=== PATIENT | female | born 1965 | race American Indian/Alaskan Native ===

== ENCOUNTER 2019-11-16 14:42 | Observation (INO) | payer OTHER ==
--- NOTE | 2019-11-16 15:26 | Emergency Department Report ---
Blank Doc - Documentation Documentation: 53-year-old female that presents with abdominal pain with n/v. This initial assessment/diagnostic orders/clinical plan/treatment(s) is/are subject to change based on patient's health status, clinical progression and re- assessment by fellow clinical providers in the ED. Further treatment and workup at subsequent clinical providers discretion. Patient/guardians urged not to elope from the ED as their condition may be serious if not clinically assessed and managed. Initial orders include: 1- Patient sent to [facility] for further evaluation and treatment 2- labs 3- UA
[2019-11-16 16:18] LABS: Hematocrit 39.1 % (30.3-42.9); Hemoglobin 13.2 gm/dl (10.1-14.3); Mean Corpuscular HGB Conc 34 % (30-34); Mean Corpuscular Volume 91 fl (79-97); Platelet Count 267 K/mm3 (140-440); Red Blood Count 4.33 M/mm3 (3.65-5.03); Red Cell Distribution Width 14.2 % (13.2-15.2)
[2019-11-16] MEDS ORDERED: ONDANSETRON 4 MG/2 ML INJ IV ONE (16:24)
[2019-11-16] MEDS ORDERED: PIPERACIL/TAZOBACTA 4.5/NS 100 4.5 GM/100 ML VIAL IV ONE (16:24)
[2019-11-16] MEDS ORDERED: SODIUM CHLORIDE 0.9% 1000 ML 1,000 ML IV ONE (16:24)
[2019-11-16] MEDS ORDERED: MORPHINE 4 MG/1 ML INJ IV ONE (16:24)
[2019-11-16 16:44] LABS: Alanine Aminotransferase 17 units/L (7-56); Albumin 4.5 g/dL (3.9-5); BUN/Creatinine Ratio 30; Blood Urea Nitrogen 12 mg/dL (7-17); Calcium 9.5 mg/dL (8.4-10.2); Hemolysis Index 4
[2019-11-16 17:04] LABS: Anisocytosis 1+; Band Neutrophils # (Manual) 0.3 K/mm3; Basophils % (Manual) 0 % (0.0-1.8); Eosinophils % (Manual) 0 % (0.0-4.3); Total Cells Counted 100; Toxic Granulation 1+
[2019-11-16 17:05] LABS: Platelet Estimate Consistent w Auto
--- NOTE | 2019-11-16 17:20 | Consultation ---
History of Present Illness Consult date: 11/16/19 Reason for consult: other (RLQ Abd pain) - History of present illness History of present illness: 53 year old female with 24-48 hour hx of progressive right lower quadrant pain, WBC 25 K, CT abd pelvis suggests acute appendicitis, only hx is hysterectomy in remote past and latex allergy. Past History Past Surgical History: No surgical history, Other (hysterectomy? in past/remote) Social history: no significant social history Family history: no significant family history Medications and Allergies Allergies Allergy/AdvReac Type Severity Reaction Status Date / Time latex Allergy Anaphylaxis Verified 11/16/19 15:30 Active Meds: Active Medications Sodium Chloride (Nacl 0.9% 1000 Ml) 1,000 mls @ 999 mls/hr IV BOLUS ONE Stop: 11/16/19 17:24 Exam Vital Signs Temp Pulse Resp BP Pulse Ox 98.9 F 106 H 20 131/70 96 11/16/19 15:28 11/16/19 15:28 11/16/19 15:28 11/16/19 15:28 11/16/19 15:28 - General physical appearance Positive: moderate distress - Eyes Positive: PERRL, normal occular movement - ENT Positive: normal pinna, normal nares, normal mucosa, no hearing loss, no congestion - Neck Positive: no masses, no bruits, trachea midline, no venous distension - Respiratory Positive: normal expansion, normal respiratory effort, clear to auscultation - Cardiovascular Rhythm: regular - Extremities Extremities: no ischemia, pulses symmetrical, No edema - Breasts Breasts: deferred - Abdomen Abdomen: Present: tender, other (tender to deep palpation right lower quadrant, no rebound or guarding) Results - Labs 11/16/19 15:52 11/16/19 15:52 Abnormal lab results 11/16/19 11/16/19 Range/Units 15:52 15:52 WBC 25.7 H (4.5-11.0) K/mm3 Seg Neuts % (Manual) 96.0 H (40.0-70.0) % Lymphocytes % (Manual) 1.0 L (13.4-35.0) % Seg Neutrophils # Man 24.7 H (1.8-7.7) K/mm3 Lymphocytes # (Manual) 0.3 L (1.2-5.4) K/mm3 Chloride 95.7 L (98-107) mmol/L Creatinine 0.4 L (0.6-1.2) mg/dL Glucose 107 H (65-100) mg/dL Total Bilirubin 1.40 H (0.1-1.2) mg/dL Diabetes panel 11/16/19 Range/Units 15:52 Sodium 137 (137-145) mmol/L Potassium 4.3 (3.6-5.0) mmol/L Chloride 95.7 L (98-107) mmol/L Carbon Dioxide 25 (22-30) mmol/L BUN 12 (7-17) mg/dL Creatinine 0.4 L (0.6-1.2) mg/dL Glucose 107 H (65-100) mg/dL Calcium 9.5 (8.4-10.2) mg/dL AST 18 (5-40) units/L ALT 17 (7-56) units/L Alkaline Phosphatase 80 (35-129) units/L Total Protein 7.7 (6.3-8.2) g/dL Albumin 4.5 (3.9-5) g/dL Calcium panel 11/16/19 Range/Units 15:52 Calcium 9.5 (8.4-10.2) mg/dL Albumin 4.5 (3.9-5) g/dL Pituitary panel 11/16/19 Range/Units 15:52 Sodium 137 (137-145) mmol/L Potassium 4.3 (3.6-5.0) mmol/L Chloride 95.7 L (98-107) mmol/L Carbon Dioxide 25 (22-30) mmol/L BUN 12 (7-17) mg/dL Creatinine 0.4 L (0.6-1.2) mg/dL Glucose 107 H (65-100) mg/dL Calcium 9.5 (8.4-10.2) mg/dL Adrenal panel 11/16/19 Range/Units 15:52 Sodium 137 (137-145) mmol/L Potassium 4.3 (3.6-5.0) mmol/L Chloride 95.7 L (98-107) mmol/L Carbon Dioxide 25 (22-30) mmol/L BUN 12 (7-17) mg/dL Creatinine 0.4 L (0.6-1.2) mg/dL Glucose 107 H (65-100) mg/dL Calcium 9.5 (8.4-10.2) mg/dL Total Bilirubin 1.40 H (0.1-1.2) mg/dL AST 18 (5-40) units/L ALT 17 (7-56) units/L Alkaline Phosphatase 80 (35-129) units/L Total Protein 7.7 (6.3-8.2) g/dL Albumin 4.5 (3.9-5) g/dL - Imaging CT scan - abdomen: report reviewed (acute appendicitis) Assessment and Plan Acute appendicitis suggested on CT abd pelvis, no perforation or abcess. Admit,npo, iv fluids, pain control OR for lap appendectomy
--- NOTE | 2019-11-16 18:09 | Cat Scan Report ---
CT ABDOMEN AND PELVIS WITH IV CONTRAST INDICATION: RLQ abd pain, N/V, elevated WBC. COMPARISON: None available. TECHNIQUE: All CT scans at this facility use dose modulation, automated exposure control, iterative reconstructi on or weight based dosing, when appropriate, to reduce radiation dose to as low as reasonably achieva ble. FINDINGS: Lung Bases: No significant abnormality. Skeletal System: No acute abnormality. ABDOMEN: Liver: Steatosis. Gallbladder: No significant abnormality. Bile Ducts: No significant abnormality. Pancreas: No significant abnormality. Spleen: No significant abnormality. Adrenals: No significant abnormality. Right Kidney: No significant abnormality. Left Kidney: No significant abnormality. Upper GI tract: No significant abnormality. Lymph Nodes: No significant adenopathy. Aorta: No significant abnormality. Additional Findings: No significant abnormality. PELVIS: Colon: No acute abnormality. Diverticulosis is noted. Urinary Bladder and Distal Ureters: No significant abnormality. Appendix: There is moderate periappendiceal inflammation. There is thickening of the appendix near th e base. Questionable small appendicolith near the base. Lymph Nodes: No significant adenopathy. Additional Findings: There is mild secondary inflammation of the distal small bowel in the right lowe r quadrant. There is trace free fluid in the pelvis. IMPRESSION: 1. There is periappendiceal inflammation and trace free fluid in the pelvis. There is suggestion of mild wall thickening of the appendiceal base. However, majority the appendix is not thick-walled or f luid-filled. These findings are concerning for acute appendicitis, possibly due to an obstructing les ion at the base/cecum. No abscess is identified. There is mild secondary inflammation of distal small bowel in the right lower quadrant. 2. Incidental findings, as above. Signer Name: Maynor Limon MD Signed: 11/16/2019 6:05 PM Workstation Name: [id number]
--- NOTE | 2019-11-16 18:11 | Emergency Department Report ---
ED Abdominal Pain HPI - General Chief Complaint: Abdominal Pain Stated Complaint: RIGHT SIDE ABD PAIN Time Seen by Provider: 11/16/19 15:25 Source: patient Mode of arrival: Ambulatory Limitations: No Limitations - History of Present Illness Initial Comments: Patient is a 53-year-old female presents emergency room with complaints of periumbilical abdominal pain that began yesterday morning. She states that last night the pain moved to her right lower quadrant. She has associated nausea, no appetite, generalized weakness. She states that the last time she ate was this morning and she had a couple of kiwi slices but then began to feel nauseous like she wanted to vomit. She states that she had a small bowel movement this morning. She denies any vomiting, diarrhea, fever, hematochezia, hematemesis, melena, urinary symptoms. She has a past abdominal Surgical history of C- section x3, fibroid removal, partial hysterectomy. She has a past medical history of hyperthyroidism and takes methimazole. She denies any allergies to medications. Severity scale (0 -10): 8 - Related Data Allergies Allergy/AdvReac Type Severity Reaction Status Date / Time latex Allergy Anaphylaxis Verified 11/16/19 15:30 ED Review of Systems ROS: Stated complaint: RIGHT SIDE ABD PAIN Other details as noted in HPI Comment: All other systems reviewed and negative ED Past Medical Hx - Past Medical History Previous Medical History?: Yes Additional medical history: [facility] Physical Exam - General Limitations: No Limitations General appearance: alert, in no apparent distress - Head Head exam: Present: atraumatic, normocephalic - Eye Eye exam: Present: normal appearance - ENT ENT exam: Present: mucous membranes moist - Respiratory Respiratory exam: Present: normal lung sounds bilaterally. Absent: respiratory distress, wheezes, rales, rhonchi, stridor, chest wall tenderness, accessory muscle use, decreased breath sounds, prolonged expiratory - Cardiovascular Cardiovascular Exam: Present: normal rhythm, tachycardia (mildly), normal heart sounds. Absent: systolic murmur, diastolic murmur, rubs, gallop - GI/Abdominal GI/Abdominal exam: Present: soft, tenderness (RLQ), rebound, normal bowel soun ds. Absent: distended, guarding, rigid - Neurological Exam Neurological exam: Present: alert, oriented X3 - Psychiatric Psychiatric exam: Present: normal affect, normal mood - Skin Skin exam: Present: warm, dry, intact ED Course Vital Signs 11/16/19 11/16/19 15:28 17:35 Temperature 98.9 F Pulse Rate 106 H Respiratory 20 16 Rate Blood Pressure 131/70 O2 Sat by Pulse 96 Oximetry - Consultations Consultation #1: 11/16/19 16:[address] Gracia, general surgery regarding patient history, presentation, results, advised to make patient n.p.o., give IV fluids, give patient Zosyn, will take to the OR, admit to hospitalist service 11/16/19 18:[address] Herring, hospitalist regarding patient history, presentation, results who will accept and resume care of patient, will admit to hospital service ED Medical Decision Making - Lab Data Result diagrams: 11/16/19 15:52 11/16/19 15:52 Lab Results 11/16/19 11/16/19 Range/Units 15:52 15:52 WBC 25.7 H (4.5-11.0) K/mm3 RBC 4.33 (3.65-5.03) M/mm3 Hgb 13.2 (10.1-14.3) gm/dl Hct 39.1 (30.3-42.9) % MCV 91 (79-97) fl MCH 30 (28-32) pg MCHC 34 (30-34) % RDW 14.2 (13.2-15.2) % Plt Count 267 (140-440) K/mm3 Add Manual Diff Complete Total Counted 100 Seg Neuts % (Manual) 96.0 H (40.0-70.0) % Band Neutrophils % 1.0 % Lymphocytes % (Manual) 1.0 L (13.4-35.0) % Reactive Lymphs % (Man) 0 % Monocytes % (Manual) 2.0 (0.0-7.3) % Eosinophils % (Manual) 0 (0.0-4.3) % Basophils % (Manual) 0 (0.0-1.8) % Metamyelocytes % 0 % Myelocytes % 0 % Promyelocytes % 0 % Blast Cells % 0 % Nucleated RBC % Not Reportable Seg Neutrophils # Man 24.7 H (1.8-7.7) K/mm3 Band Neutrophils # 0.3 K/mm3 Lymphocytes # (Manual) 0.3 L (1.2-5.4) K/mm3 Abs React Lymphs (Man) 0.0 K/mm3 Monocytes # (Manual) 0.5 (0.0-0.8) K/mm3 Eosinophils # (Manual) 0.0 (0.0-0.4) K/mm3 Basophils # (Manual) 0.0 (0.0-0.1) K/mm3 Metamyelocytes # 0.0 K/mm3 Myelocytes # 0.0 K/mm3 Promyelocytes # 0.0 K/mm3 Blast Cells # 0.0 K/mm3 WBC Morphology Not Reportable Hypersegmented Neuts Not Reportable Hyposegmented Neuts Not Reportable Hypogranular Neuts Not Reportable Smudge Cells Not Reportable Toxic Granulation 1+ Toxic Vacuolation Not Reportable Dohle Bodies Not Reportable Pelger-Huet Anomaly Not Reportable Justino Rods Not Reportable Platelet Estimate Consistent w auto Clumped Platelets Not Reportable Plt Clumps, EDTA Not Reportable Large Platelets Not Reportable Giant Platelets Not Reportable Platelet Satelliting Not Reportable Plt Morphology Comment Not Reportable RBC Morphology Not Reportable Dimorphic RBCs Not Reportable Polychromasia Not Reportable Hypochromasia Not Reportable Poikilocytosis Not Reportable Anisocytosis 1+ Microcytosis Not Reportable Macrocytosis Not Reportable Spherocytes Not Reportable Pappenheimer Bodies Not Reportable Sickle Cells Not Reportable Target Cells Not Reportable Tear Drop Cells Not Reportable Ovalocytes Not Reportable Helmet Cells Not Reportable [place] Bodies Not Reportable Myton Rings Not Reportable Kerkhoven Cells Not Reportable Bite Cells Not Reportable Crenated Cell Not Reportable Elliptocytes Not Reportable Acanthocytes (Spur) Not Reportable Rouleaux Not Reportable Hemoglobin C Crystals Not Reportable Schistocytes Not Reportable Malaria parasites Not Reportable Rodney Bodies Not Reportable Hem Pathologist Commnt No Sodium 137 (137-145) mmol/L Potassium 4.3 (3.6-5.0) mmol/L Chloride 95.7 L (98-107) mmol/L Carbon Dioxide 25 (22-30) mmol/L Anion Gap 21 mmol/L BUN 12 (7-17) mg/dL Creatinine 0.4 L (0.6-1.2) mg/dL Estimated GFR > 60 ml/min BUN/Creatinine Ratio 30 % Glucose 107 H (65-100) mg/dL Calcium 9.5 (8.4-10.2) mg/dL Total Bilirubin 1.40 H (0.1-1.2) mg/dL AST 18 (5-40) units/L ALT 17 (7-56) units/L Alkaline Phosphatase 80 (35-129) units/L Total Protein 7.7 (6.3-8.2) g/dL Albumin 4.5 (3.9-5) g/dL Albumin/Globulin Ratio 1.4 % Lipase 16 (13-60) units/L - Radiology Data Radiology results: report reviewed CT ABDOMEN AND PELVIS WITH IV CONTRAST INDICATION: RLQ abd pain, N/V, elevated WBC. COMPARISON: None available. TECHNIQUE: All CT scans at this facility use dose modulation, automated exposure control, iterative reconstruction or weight based dosing, when appropriate, to reduce radiation dose to as low as reasonably achievable. FINDINGS: Lung Bases: No significant abnormality. Skeletal System: No acute abnormality. ABDOMEN: Liver: Steatosis. Gallbladder: No significant abnormality. Bile Ducts: No significant abnormality. Pancreas: No significant abnormality. Spleen: No significant abnormality. Adrenals: No significant abnormality. Right Kidney: No significant abnormality. Left Kidney: No significant abnormality. Upper GI tract: No significant abnormality. Lymph Nodes: No significant adenopathy. Aorta: No significant abnormality. Additional Findings: No significant abnormality. PELVIS: Colon: No acute abnormality. Diverticulosis is noted. Urinary Bladder and Distal Ureters: No significant abnormality. Appendix: There is moderate periappendiceal inflammation. There is thickening of the appendix near the base. Questionable small appendicolith near the base. Lymph Nodes: No significant adenopathy. Additional Findings: There is mild secondary inflammation of the distal small bowel in the right lower quadrant. There is trace free fluid in the pelvis. IMPRESSION: 1. There is periappendiceal inflammation and trace free fluid in the pelvis. There is suggestion of mild wall thickening of the appendiceal base. However, majority the appendix is not thick-walled or fluid-filled. These findings are concerning for acute appendicitis, possibly due to an obstructing lesion at the base/cecum. No abscess is identified. There is mild secondary inflammation of distal small bowel in the right lower quadrant. 2. Incidental findings, as above. Signer Name: Maynor Limon MD Signed: 11/16/2019 6:05 PM Workstation Name: [id number] Transcribed By: NICOLE Dictated By: Maynor Limon MD Electronically Authenticated By: Maynor Limon MD Signed Date/Time: 11/16/191804 DD/ 56 TD/TT: - Medical Decision Making Patient is a 53-year-old female presents emergency room with complaints of periumbilical abdominal pain that began yesterday morning. She states that last night the pain moved to her right lower quadrant. She has associated nausea, no appetite, generalized weakness. She states that the last time she ate was this morning and she had a couple of kiwi slices but then began to feel nauseous like she wanted to vomit. She states that she had a small bowel movement this morning. She denies any vomiting, diarrhea, fever, hematochezia, hematemesis, melena, urinary symptoms. She has a past abdominal Surgical history of C- section x3, fibroid removal, partial hysterectomy. She has a past medical history of hyperthyroidism and takes methimazole. She denies any allergies to medications. Vitals with mild tachycardia, otherwise stable. On exam patient has right lower quadrant tenderness palpation, rebound tenderness, normal bowel sounds. Lab significant for elevated white blood cell count at 25.7. CT abd pelvis with IV contrast: 1. There is periappendiceal inflammation and trace free fluid in the pelvis. There is suggestion of mild wall thickening of the appendiceal base. However, majority the appendix is not thick-walled or fluid- filled. These findings are concerning for acute appendicitis, possibly due to an obstructing lesion at the base/cecum. No abscess is identified. There is mild secondary inflammation of distal small bowel in the right lower quadrant. 2. Incidental findings, as above. Patient given 1 L IV fluid, Zofran, morphine, Zosyn. Discussed all results with patient. Spoke to Dr. Gracia, general surgery regarding patient history, presentation, results, advised to make patient n.p.o., give IV fluids, give patient Zosyn, will take to the OR, admit to hospitalist service. Spoke to Dr. Herring, hospitalist regarding patient history, presentation, results who will accept and resume care of patient, will admit to hospital service. Spoke with Dr. Claire Gifford, ER attending who agrees with plan. Patient admitted to hospitalist service. - Differential Diagnosis Appendicitis, colitis, diverticulitis, perforation, mass, UTI, pyelonephrit Critical care attestation.: If time is entered above; I have spent that time in minutes in the direct care of this critically ill patient, excluding procedure time. ED Disposition Clinical Impression: Nausea Acute appendicitis Qualifiers: Acute appendicitis type: with localized peritonitis Appendicitis gangrene presence: without gangrene Appendicitis perforation presence: without perforation Appendicitis abscess presence: without abscess Qualified Code(s): K35.30 - Acute appendicitis with localized peritonitis, without perforation or gangrene Abdominal pain Qualifiers: Abdominal location: right lower quadrant Qualified Code(s): R10.31 - Right lower quadrant pain Leukocytosis Qualifiers: Leukocytosis type: unspecified Qualified Code(s): D72.829 - Elevated white blood cell count, unspecified Disposition: DC-09 OP ADMIT IP TO THIS HOSP Is pt being admited?: Yes Does the pt Need Aspirin: No Condition: Fair Instructions: Abdominal Pain (ED) Time of Disposition: 18:23 Print Language: HEBREW
[2019-11-16] MEDS ORDERED: MORPHINE 2 MG/1 ML INJ IV PRN (18:28)
[2019-11-16] MEDS ORDERED: ONDANSETRON 4 MG/2 ML INJ IV PRN (18:28)
[2019-11-16] MEDS ORDERED: ACETAMINOPHEN 325 MG TAB PO PRN (18:28)
--- NOTE | 2019-11-16 18:41 | History and Physical Report ---
History of Present Illness Date of examination: 11/16/19 Chief complaint: Abdominal pain History of present illness: Patient is a 52-year-old female with history of hyperthyroidism presents to the ED with complaints of abdominal pain since 2 days pain started in the umbilical area and then last night the pain shifted to the right lower quadrant. Associated with nausea, fever and chills. denies any history of vomiting, Denies melena, constipation or diarrhea. CT scanning of the abdomen and pelvis results positive for acute appendicitis. Patient also has marked leukocytosis Surgical consultation was obtained while in ED. patient is being admitted for further management Past History Past Medical History: hyperthyroidism Past Surgical History: , hysterectomy Social history: no significant social history Family history: hypertension (Mother has hypertension and Parkinson's disease) Medications and Allergies Allergies Allergy/AdvReac Type Severity Reaction Status Date / Time latex Allergy Anaphylaxis Verified 11/16/19 15:30 Active Meds: Active Medications Acetaminophen (Tylenol) 650 mg PO Q4H PRN PRN Reason: Pain MILD(1-3)/Fever >100.5/VUONG Heparin Sodium (Porcine) (Heparin) 5,000 unit SUB-Q Q8HR LONNIE Sodium Chloride (Nacl 0.9% 1000 Ml) 1,000 mls @ 100 mls/hr IV DIRECT LONNIE Piperacillin Sod/Tazobactam Sod (Zosyn/Ns 4.5gm/100ml) 4.5 gm in 100 mls @ 200 mls/hr IV Q8HR LONNIE; Protocol Morphine Sulfate (Morphine) 2 mg IV Q4H PRN PRN Reason: Pain, Moderate (4-6) Ondansetron HCl (Zofran) 4 mg IV Q8H PRN PRN Reason: Nausea And Vomiting Sodium Chloride (Sodium Chloride Flush Syringe 10 Ml) 10 ml IV BID LONNIE Sodium Chloride (Sodium Chloride Flush Syringe 10 Ml) 10 ml IV PRN PRN PRN Reason: LINE FLUSH Review of Systems Constitutional: fever, chills, weakness, no weight loss Ears, nose, mouth and throat: no ear pain, no sore throat Cardiovascular: no chest pain, no palpitations, no syncope, no high blood pressure Respiratory: no cough, no shortness of breath Gastrointestinal: abdominal pain, nausea, loss of appetite (For the past 2 days) Genitourinary Female: no dysuria Rectal: no pain Musculoskeletal: no neck pain, no low back pain Integumentary: no rash Neurological: no head injury, no seizures, no syncope Psychiatric: no anxiety, no depression Exam - Constitutional Vitals: Temp Pulse Resp BP Pulse Ox 98.9 F 106 H 16 131/70 96 11/16/19 15:28 11/16/19 15:28 11/16/19 17:35 11/16/19 15:28 11/16/19 15:28 General appearance: Present: mild distress (From pain), well-nourished - EENT Eyes: Present: PERRL, EOM intact ENT: hearing intact, clear oral mucosa - Neck Neck: Present: supple, normal ROM. Absent: masses or JVD - Respiratory Respiratory effort: normal Respiratory: bilateral: CTA - Cardiovascular Rhythm: other (Tachycardia) Heart Sounds: Present: S1 & S2 - Extremities Extremities: No edema - Abdominal General gastrointestinal: Present: soft, tender (In the right lower quadrant). Absent: hepatomegaly, splenomegaly - Rectal Rectal Exam: deferred - Integumentary Integumentary: Present: clear - Musculoskeletal Musculoskeletal: strength equal bilaterally - Psychiatric Psychiatric: appropriate mood/affect, intact judgment & insight - Neurologic Neurologic: no focal deficits Results - Labs CBC & Chem 7: 11/16/19 15:52 11/16/19 15:52 Labs: Abnormal lab results 11/16/19 11/16/19 Range/Units 15:52 15:52 WBC 25.7 H (4.5-11.0) K/mm3 Seg Neuts % (Manual) 96.0 H (40.0-70.0) % Lymphocytes % (Manual) 1.0 L (13.4-35.0) % Seg Neutrophils # Man 24.7 H (1.8-7.7) K/mm3 Lymphocytes # (Manual) 0.3 L (1.2-5.4) K/mm3 Chloride 95.7 L (98-107) mmol/L Creatinine 0.4 L (0.6-1.2) mg/dL Glucose 107 H (65-100) mg/dL Total Bilirubin 1.40 H (0.1-1.2) mg/dL Assessment and Plan - Patient Problems (1) Acute appendicitis Status: Acute Qualifiers: Acute appendicitis type: with localized peritonitis Appendicitis gangrene presence: without gangrene Appendicitis perforation presence: without perforation Appendicitis abscess presence: without abscess Qualified Code(s): K35.30 - Acute appendicitis with localized peritonitis, without perforation or gangrene Plan to address problem: N.p.o. IV fluids Pain control Surgical consulted She is medically stable for surgery (2) Neutrophilic leukocytosis Status: Acute Plan to address problem: Secondary to #1 Rule out sepsis versus reactive leukocytosis Will order blood cultures, lactic acid level Empiric IV antibiotics with Zosyn Monitor CBC (3) History of hyperthyroidism Status: Chronic Plan to address problem: Hold methimazole for now She states she takes 2.5 mg of methimazole
--- NOTE | 2019-11-16 19:57 | Anesthesia Consultation ---
Anesthesia Consult and Med Hx Date of service: 11/16/19 - Airway Anesthetic Teeth Evaluation: Good ROM Head & Neck: Adequate Mental/Hyoid Distance: Adequate Mallampati Class: Class II Intubation Access Assessment: Probably Good - Pulmonary Exam CTA: Yes - Cardiac Exam Cardiac Exam: RRR - Pre-Operative Health Status ASA Pre-Surgery Classification: ASA2 Proposed Anesthetic Plan: General - Pulmonary Hx Smoking: No Hx Respiratory Symptoms: No Hx Sleep Apnea: No - Cardiovascular System Hx Hypertension: No Hx Coronary Artery Disease: No Hx Heart Attack/AMI: No - Central Nervous System Hx Neuromuscular Disorder: No Hx Seizures: No CVA: No Hx Psychiatric Problems: No - Endocrine Hx Renal Disease: No Hx Liver Disease: No Hx Insulin Dependent Diabetes: No Hx Non-Insulin Dependent Diabetes: No Hx Thyroid Disease: Yes Hx Hypothyroidism: Yes - Hematic Hx Anemia: No Hx Sickle Cell Disease: No - Other Systems Hx Alcohol Use: No Hx Substance Use: No Hx Obesity: No - Additional Comments Anesthesia Medical History Comments: Patient denied previous anesthesia complication
--- NOTE | 2019-11-16 19:58 | Anesthesia Day of Surgery ---
Anesthesia Day of Surgery - Day of Surgery Patient Examined: Yes Patient H&P Reviewed: Yes Patient is NPO: Yes Beta Blockers: No Cardiac Clearance: No Pulmonary Clearance: No
[2019-11-16] MEDS ORDERED: LIDOCAINE (1%) 10 MG/1 ML VIAL 20 ML MDV ONE (20:14)
[2019-11-16] MEDS ORDERED: BUPIVACAINE/PF (0.25%) 2.5 MG/ML 30 ML VIAL INFILTRATI ONE (20:15)
[2019-11-16] MEDS ORDERED: ONDANSETRON 4 MG/2 ML INJ ONE (21:20)
[2019-11-16] MEDS ORDERED: ROCURONIUM 50 MG/5 ML INJ IV ONE (21:20)
[2019-11-16] MEDS ORDERED: dexAMETHasone 20 MG/5 ML VIAL ONE (21:20)
[2019-11-16] MEDS ORDERED: LIDOCAINE MPF (2%) 20 MG/1 ML VIAL 5 ML ONE (21:20)
[2019-11-16] MEDS ORDERED: propofoL 200 MG/20 ML VIAL IV ONE (21:21)
[2019-11-16] MEDS ORDERED: HYDROmorphone 1 MG/1 ML INJ ONE (21:21)
[2019-11-16] MEDS ORDERED: PIPERACIL/TAZOBACTA 4.5/NS 100 4.5 GM/100 ML VIAL IV SCH (22:00)
--- NOTE | 2019-11-16 22:00 | Post Operative Note ---
Pre-op diagnosis: acute appendicitis Post-op diagnosis: same Anesthesia: GETA Surgeon: EDITH CHURCHILL Estimated blood loss: minimal Pathology: list (appendix) Condition: stable Disposition: floor
[2019-11-16] MEDS ORDERED: oxyCODONE /ACETAMINOPHEN 5-325MG TAB PO PRN (22:02)
[2019-11-16] MEDS ORDERED: ceFAZolin 1 GM VIAL ONE ×2 (22:27)
[2019-11-16] MEDS ORDERED: SODIUM CHLORIDE 0.9% IRRIG SOLN 2000 ML IR ONE (22:53)
[2019-11-16] MEDS ORDERED: BUPIVACAINE/PF (0.5%) 5 MG/1 ML 30 ML VIAL INFILTRATI ONE ×2 (22:53)
[2019-11-16] MEDS ORDERED: LIDOCAINE (1%) 10 MG/1 ML VIAL 20 ML MDV INFILTRATI ONE ×2 (22:53)
[2019-11-16] MEDS ORDERED: NEOSTIGMINE 10MG/10 ML INJ MDV ONE (22:54)
[2019-11-16] MEDS ORDERED: KETOROLAC 30 MG/1 ML INJ ONE (22:54)
[2019-11-16] MEDS ORDERED: GLYCOPYRROLATE 0.4 MG/2 ML INJ ONE (22:54)
[2019-11-16] MEDS ORDERED: LACTATED RINGERS 1,000 ML ONE ×2 (23:06)
[2019-11-16] MEDS ORDERED: HYDROmorphone 1 MG/1 ML INJ IV PRN ×2 (23:29)
--- NOTE | 2019-11-16 23:46 | Operative Report ---
PREOPERATIVE DIAGNOSIS: Acute appendicitis, confirmed on CAT scan. POSTOPERATIVE DIAGNOSIS: Acute appendicitis, confirmed on CAT scan. PROCEDURE: Laparoscopic appendectomy was done under general. OPERATIVE FINDINGS: Compatible with acute gangrenous appendicitis. SPECIMEN: Consisted of the appendix. BLOOD LOSS: Minimal. DESCRIPTION OF PROCEDURE: After informed consent, the patient was brought to the operating room, induced under general anesthesia. She received IV antibiotics and had compression stockings in place. Her left arm was tucked. She was sterilely prepped and draped in a supine fashion. A skin wheal was raised in the subumbilical position with 0.5% Marcaine mixed with 1% lidocaine. A 15 scalpel was used to make the incision. I used the S retractors and tracked down to the underlying anterior abdominal fascia. It was elevated between 2 Cheryl clamps and utilizing the curved Bangura scissors, I very carefully dissected through into the peritoneal cavity. I used the S retractors to spread the fascia gently. I used my finger to push away any bowel, which none was present and then I introduced the Sherry port, blew up the balloon and attached it to CO2. The other 2 ports were placed under direct visualization with a 30-degree 5 mm laparoscope in a like fashion, a 5 mm port was placed in the right mid quadrant lateral to the epigastrics and the left mid quadrant. I was able to identify the cecum and I followed the tenia down into the base of the appendix. The appendix was carefully dissected it out utilizing the Kittner dissector and gentle traction. The findings were consistent with acute gangrenous appendicitis. I placed gentle traction on the appendix and then used the [place] and dissected at the base of the appendix, flushed with the cecum and I fired 2 applications of endoluminal stapler at the base of the appendix and the mesoappendix and then the appendix was removed in an EndoCatch bag. I very carefully examined the staple line on the cecum as well as the mesoappendix. It looked very clean and there was no evidence of bleeding. I washed out locally with Nejhatt irrigation system, again examined the staple line and looked very clean with no bleeding. Then, I withdrew the ports under direct visualization with the scope. I closed the 12 mm port sites fascia with 0 Vicryl sutures that I placed with a side port and then I closed the skin with 4-0 Monocryl with skin glue. The patient was hemodynamically stable throughout the procedure. She transferred to recovery room in stable condition. I placed glue on the incisions. The specimen was sent for permanent pathology. JOB# [id number] JESU/STARLA FARRIS
--- NOTE | 2019-11-16 23:50 | Post Anesthesia Evaluation ---
- Post Anesthesia Evaluation Patient Participated: Yes Airway Patent: Yes Stable Respiratory Function: Yes Nausea/Vomiting: No Temp > 96.8F: Yes Pain Manageable: Yes Adequeate Hydration: Yes Anesthesia Complications: No Block Receding Appropriately: Not Applicable Patient on Ventilator: No
[2019-11-17] MEDS: PIPERACIL/TAZOBACTA 4.5/NS 100 4.5 GM/100 ML VIAL IV SCH ×3 (01:03→21:03)
[2019-11-17] MEDS: SODIUM CHLORIDE 0.9% 1000 ML 1,000 ML IV SCH ×2 (01:03→17:55)
--- NOTE | 2019-11-17 07:49 | Progress Note ---
Assessment and Plan POD 1 s/p lap appendectomy for gangrenous appendictis, VSS AF, CBC pending, on clears, continue iv antibtiotics, mobilize, I will check wounds later this am, when discharged will need to be on CIPRO and Flagyll for at least 5 days, pain meds, and follow up in my office in one week, call [phone] for appt. Subjective Date of service: 11/17/19 Patient Reports: Positive: pain is less Objective Vital Signs - 12hr 11/16/19 11/16/19 11/16/19 23:21 23:25 23:30 Temperature 99.6 F Pulse Rate 88 85 84 Respiratory 19 14 16 Rate Blood Pressure 113/50 111/58 109/55 Blood Pressure [Left] O2 Sat by Pulse 96 96 96 Oximetry 11/16/19 11/16/19 11/16/19 23:35 23:45 23:55 Temperature 99.3 F Pulse Rate 83 96 H 89 Respiratory 17 16 18 Rate Blood Pressure 106/55 109/43 114/61 Blood Pressure [Left] O2 Sat by Pulse 96 95 96 Oximetry 11/17/19 11/17/19 00:17 04:47 Temperature 98.1 F 97.6 F Pulse Rate 94 H 80 Respiratory 18 18 Rate Blood Pressure 116/56 Blood Pressure 100/57 [Left] O2 Sat by Pulse 89 95 Oximetry - Labs 11/16/19 15:52 11/16/19 15:52 Diabetes panel 11/16/19 Range/Units 15:52 Sodium 137 (137-145) mmol/L Potassium 4.3 (3.6-5.0) mmol/L Chloride 95.7 L (98-107) mmol/L Carbon Dioxide 25 (22-30) mmol/L BUN 12 (7-17) mg/dL Creatinine 0.4 L (0.6-1.2) mg/dL Glucose 107 H (65-100) mg/dL Calcium 9.5 (8.4-10.2) mg/dL AST 18 (5-40) units/L ALT 17 (7-56) units/L Alkaline Phosphatase 80 (35-129) units/L Total Protein 7.7 (6.3-8.2) g/dL Albumin 4.5 (3.9-5) g/dL Calcium panel 11/16/19 Range/Units 15:52 Calcium 9.5 (8.4-10.2) mg/dL Albumin 4.5 (3.9-5) g/dL Pituitary panel 11/16/19 Range/Units 15:52 Sodium 137 (137-145) mmol/L Potassium 4.3 (3.6-5.0) mmol/L Chloride 95.7 L (98-107) mmol/L Carbon Dioxide 25 (22-30) mmol/L BUN 12 (7-17) mg/dL Creatinine 0.4 L (0.6-1.2) mg/dL Glucose 107 H (65-100) mg/dL Calcium 9.5 (8.4-10.2) mg/dL Adrenal panel 11/16/19 Range/Units 15:52 Sodium 137 (137-145) mmol/L Potassium 4.3 (3.6-5.0) mmol/L Chloride 95.7 L (98-107) mmol/L Carbon Dioxide 25 (22-30) mmol/L BUN 12 (7-17) mg/dL Creatinine 0.4 L (0.6-1.2) mg/dL Glucose 107 H (65-100) mg/dL Calcium 9.5 (8.4-10.2) mg/dL Total Bilirubin 1.40 H (0.1-1.2) mg/dL AST 18 (5-40) units/L ALT 17 (7-56) units/L Alkaline Phosphatase 80 (35-129) units/L Total Protein 7.7 (6.3-8.2) g/dL Albumin 4.5 (3.9-5) g/dL
[2019-11-17] MEDS ORDERED: HEPARIN 5,000 UNIT/1 ML VIAL SUB-Q SCH (08:00)
[2019-11-17 08:16] LABS: Hematocrit 33.8 % (30.3-42.9); Hemoglobin 11.4 gm/dl (10.1-14.3); Mean Corpuscular HGB Conc 34 % (30-34); Mean Corpuscular Volume 91 fl (79-97); Platelet Count 230 K/mm3 (140-440); Red Blood Count 3.73 M/mm3 (3.65-5.03); Red Cell Distribution Width 14.4 % (13.2-15.2)
[2019-11-17 09:00] LABS: Band Neutrophils # (Manual) 0.7 K/mm3; Basophils % (Manual) 0 % (0.0-1.8); Eosinophils % (Manual) 0 % (0.0-4.3); Total Cells Counted 100
[2019-11-17 09:01] LABS: Platelet Estimate Consistent w Auto
[2019-11-17 09:15] LABS: Blood Urea Nitrogen 9 mg/dL (7-17); Calcium 8.8 mg/dL (8.4-10.2); Hemolysis Index 5
[2019-11-17 09:16] LABS: BUN/Creatinine Ratio 23
--- NOTE | 2019-11-17 09:35 | Event Note ---
Date: 11/17/19 WBC really high, patient needs to stay in hospital on iv zosyn.
[2019-11-17] MEDS ORDERED: methIMAzole 5 MG TAB PO SCH (16:00)
--- NOTE | 2019-11-17 17:12 | Progress Note ---
Assessment and Plan - Patient Problems (1) Appendicitis Current Visit: Yes Status: Acute Plan to address problem: Patient with acute appendicitis status post surgical intervention. Patient doing well. Patient positive bowel sounds eating better. Plan for discharge in a.m. Possibly. (2) Neutrophilic leukocytosis Current Visit: No Status: Acute Plan to address problem: Patient had increased white count from 25-34. We will follow-up white count and vitals for a.m. (3) History of hyperthyroidism Current Visit: No Status: Chronic Plan to address problem: We will start back on PTU. Subjective Date of service: 11/17/19 Principal diagnosis: Acute cholecystitis Interval history: Patient 53-year-old female presents with acute appendicitis postop day 2 status post lap appendectomy. Patient hospital course complicated by elevated white count. Low-grade fever. 1 day postop. Patient feels better. Appetite is improved. Pain is improved. Objective - Constitutional Vitals: Vital Signs - 12hr 11/17/19 11/17/19 11/17/19 08:17 12:00 15:15 Temperature 98.1 F 98.6 F 98.1 F Pulse Rate 91 H 95 H 83 Respiratory 17 18 18 Rate Blood Pressure 115/60 124/60 125/58 O2 Sat by Pulse 92 93 99 Oximetry General appearance: Present: no acute distress, well-nourished - EENT Eyes: PERRL, EOM intact ENT: hearing intact, clear oral mucosa Ears: bilateral: normal - Neck Neck: supple, normal ROM - Respiratory Respiratory effort: normal Respiratory: bilateral: CTA - Breasts Breasts: normal - Cardiovascular Rhythm: regular Heart Sounds: Present: S1 & S2. Absent: gallop, rub Extremities: pulses intact, No edema, normal color, Full ROM - Gastrointestinal General gastrointestinal: Present: soft, non-tender, non-distended, normal bowel sounds, other (Bandaged surgical site.) - Genitourinary Female genitourinary: normal - Integumentary Integumentary: clear, warm, dry - Musculoskeletal Musculoskeletal: 1, strength equal bilaterally - Neurologic Neurologic: moves all extremities - Psychiatric Psychiatric: memory intact, appropriate mood/affect, intact judgment & insight - Labs CBC & Chem 7: 11/17/19 07:51 11/17/19 07:51 Labs: Abnormal lab results 10/09/20 10/09/20 Range/Units 07:51 07:51 WBC 34.5 H (4.5-11.0) K/mm3 Seg Neuts % (Manual) 91.0 H (40.0-70.0) % Lymphocytes % (Manual) 4.0 L (13.4-35.0) % Seg Neutrophils # Man 31.4 H (1.8-7.7) K/mm3 Monocytes # (Manual) 1.0 H (0.0-0.8) K/mm3 Creatinine 0.4 L (0.6-1.2) mg/dL Glucose 190 H (65-100) mg/dL
[2019-11-17] MEDS ORDERED: METHIMAZOLE 5 MG PO SCH (17:15)
[2019-11-17] MEDS: methIMAzole 5 MG TAB PO SCH (17:29)
[2019-11-17 18:56] LABS: Bilirubin,Urine NEG (Negative); Blood,Urine LG (Negative); Color,Urine Yellow (Yellow); Protein,Urine <15 mg/dL mg/dL (Negative); Urobilinogen,Urine < 2.0 mg/dL (<2.0)
[2019-11-18] MEDS: PIPERACIL/TAZOBACTA 4.5/NS 100 4.5 GM/100 ML VIAL IV SCH (03:54)
[2019-11-18] MEDS: SODIUM CHLORIDE 0.9% 1000 ML 1,000 ML IV SCH (03:54)
[2019-11-18 05:29] LABS: Hematocrit 30.4 % (30.3-42.9); Hemoglobin 10.2 gm/dl (10.1-14.3); Mean Corpuscular HGB Conc 34 % (30-34); Mean Corpuscular Volume 92 fl (79-97); Platelet Count 212 K/mm3 (140-440); Red Blood Count 3.32 M/mm3 (3.65-5.03); Red Cell Distribution Width 14.6 % (13.2-15.2)
--- NOTE | 2019-11-18 06:15 | Progress Note ---
Assessment and Plan POD 2 VSS AF pain less according to documented notes for nurse, tolerating liquids, WBC down to 21K, OK to discharge patient on oral cipro and flagyll x 5 days, f/u in my office on Wednesday, Reg diet as tolerated, pain meds, kurtis problems return to ER and call me, call Wednesday for office appt. at [phone], I gave patient one of my cards with contact information and I instructed her on diet,activity and wound care. Subjective Date of service: 11/18/19 Patient Reports: Positive: feels better Objective Vital Signs - 12hr 11/17/19 11/18/19 11/18/19 20:35 00:05 03:51 Temperature 98.1 F 98.1 F 98.3 F Pulse Rate 88 77 73 Respiratory 18 18 18 Rate Blood Pressure 125/65 117/48 125/62 O2 Sat by Pulse 93 95 93 Oximetry - Labs 11/18/19 04:17 11/17/19 07:51 Diabetes panel 11/17/19 Range/Units 07:51 Sodium 138 (137-145) mmol/L Potassium 4.0 (3.6-5.0) mmol/L Chloride 101.4 (98-107) mmol/L Carbon Dioxide 23 (22-30) mmol/L BUN 9 (7-17) mg/dL Creatinine 0.4 L (0.6-1.2) mg/dL Glucose 190 H (65-100) mg/dL Calcium 8.8 (8.4-10.2) mg/dL Calcium panel 11/17/19 Range/Units 07:51 Calcium 8.8 (8.4-10.2) mg/dL Pituitary panel 11/17/19 Range/Units 07:51 Sodium 138 (137-145) mmol/L Potassium 4.0 (3.6-5.0) mmol/L Chloride 101.4 (98-107) mmol/L Carbon Dioxide 23 (22-30) mmol/L BUN 9 (7-17) mg/dL Creatinine 0.4 L (0.6-1.2) mg/dL Glucose 190 H (65-100) mg/dL Calcium 8.8 (8.4-10.2) mg/dL Adrenal panel 11/17/19 Range/Units 07:51 Sodium 138 (137-145) mmol/L Potassium 4.0 (3.6-5.0) mmol/L Chloride 101.4 (98-107) mmol/L Carbon Dioxide 23 (22-30) mmol/L BUN 9 (7-17) mg/dL Creatinine 0.4 L (0.6-1.2) mg/dL Glucose 190 H (65-100) mg/dL Calcium 8.8 (8.4-10.2) mg/dL
[2019-11-18 06:39] LABS: Basophils % (Manual) 0 % (0.0-1.8); Eosinophils % (Manual) 0 % (0.0-4.3); Hypochromasia Few; Total Cells Counted 100
[2019-11-18 06:40] LABS: Platelet Estimate Consistent w Auto
[2019-11-18 07:06] VITALS: BP 126/63
[2019-11-18 07:26] LABS: Basophils % (Auto) 0.1 % (0.0-1.8); Hematocrit 30.6 % (30.3-42.9); Hemoglobin 10.5 gm/dl (10.1-14.3); Lymphocytes # (Auto) 1.8 K/mm3 (1.2-5.4); Lymphocytes % (Auto) 9.3 % (13.4-35.0); Mean Corpuscular HGB Conc 34 % (30-34); Mean Corpuscular Volume 91 fl (79-97); Monocytes # (Auto) 1.2 K/mm3 (0.0-0.8); Monocytes % (Auto) 6.2 % (0.0-7.3); Platelet Count 219 K/mm3 (140-440); Red Blood Count 3.36 M/mm3 (3.65-5.03); Red Cell Distribution Width 14.6 % (13.2-15.2)
[2019-11-18 07:38] LABS: Blood Urea Nitrogen 8 mg/dL (7-17); Calcium 8.3 mg/dL (8.4-10.2); Hemolysis Index 4
[2019-11-18 08:05] LABS: BUN/Creatinine Ratio 20
--- NOTE | 2019-11-18 09:05 | Discharge Summary ---
Providers - Providers Date of Admission: 11/16/19 18:23 Date of discharge: 11/18/19 Attending physician: KIRSTY DUMONT 11/16/19 16:51 Consult to Physician [CONS] Stat Comment: Consulting Provider: EDITH CHURCHILL Physician Instructions: Reason For Exam: RLQ pain, WBC 25k, concern for appendicitis Primary care physician: CANDICE GREENE Hospitalization Condition: Fair Hospital course: Patient presented with acute right-sided abdominal pain. CT scan and work-up revealed acute appendicitis. Patient was taken to the OR for surgical intervention and did well. Hospital course was complicated by brief elevation in leukocytosis which quickly resolved. Will discharge patient on antibiotics Cipro and Flagyl for an additional 5 days. Patient is afebrile pain is minimal. Tolerating p.o. Disposition: DC-01 TO HOME OR SELFCARE - Discharge Diagnoses (1) Appendicitis Status: Acute Comment: Status post surgical intervention successful did well. Discharge follow-up with surgery 1 week. Will be discharged with Flagyl and ciprofloxacin. Additional 5 days (2) Neutrophilic leukocytosis Status: Acute Comment: Resolving. (3) History of hyperthyroidism Status: Chronic Comment: Restarted home medications Core Measure Documentation - Palliative Care Palliative Care/ Comfort Measures: Not Applicable - Core Measures Any of the following diagnoses?: none Exam - Constitutional Vitals: Temp Pulse Resp BP Pulse Ox 97.9 F 72 18 126/63 95 11/18/19 06:58 11/18/19 06:58 11/18/19 06:58 11/18/19 06:58 11/18/19 06:58 General appearance: Present: no acute distress, well-nourished - EENT Eyes: Present: PERRL ENT: hearing intact, clear oral mucosa - Neck Neck: Present: supple, normal ROM - Respiratory Respiratory effort: normal Respiratory: bilateral: CTA - Cardiovascular Heart Sounds: Present: S1 & S2. Absent: rub, click - Extremities Extremities: pulses symmetrical, No edema Peripheral Pulses: within normal limits - Abdominal General gastrointestinal: Present: soft, non-tender, non-distended, normal bowel sounds Female genitourinary: Present: normal - Integumentary Integumentary: Present: clear, warm, dry - Musculoskeletal Musculoskeletal: gait normal, strength equal bilaterally - Psychiatric Psychiatric: appropriate mood/affect, intact judgment & insight - Neurologic Neurologic: CNII-XII intact, moves all extremities Plan Activity: no restrictions Weight Bearing Status: Full Weight Bearing Diet: low fat, advance as tolerated Special Instructions: other (Identified per surgery.) Follow up with: CANDICE GREENE MD [Primary Care Provider] - 3-5 Days Prescriptions: levoFLOXacin [Levaquin TAB] 500 mg PO Q24HR #7 tablet oxyCODONE /ACETAMINOPHEN [Percocet 5/325 mg] 1 tab PO Q4H PRN #10 tablet PRN Reason: Pain, Moderate (4-6)
[2019-11-18] MEDS: methIMAzole 5 MG TAB PO SCH (09:30)
[2019-11-18] MEDS ORDERED: metroNIDAZOLE 500 MG TAB PO SCH (10:00)
[2019-11-18] MEDS ORDERED: levoFLOXacin 500 MG TAB PO SCH (10:00)
== END 2019-11-18 10:52 | disposition home or self-care (01) ==
LOC: ED 14:42 → 3B-SURG 18:23
PROVIDERS: ADMIT Internal Medicine; ATTEND Internal Medicine
DX: K35.30 Acute appendicitis with localized peritonitis, without perforation or gangrene (principal); D72.828 Other elevated white blood cell count; E05.90 Thyrotoxicosis, unspecified without thyrotoxic crisis or storm; R11.0 Nausea; Z90.710 Acquired absence of both cervix and uterus; Z98.891 History of uterine scar from previous surgery
CPT/HCPCS: 36415; 44970; 74177; 80048; 80053; 81001; 82140; 83690; 85007; 85025; 87040; 88304; 96361; 96365; 96366; 96375; 99285; A4217; G0378; J0690; J1100; J1885; J2270; J2405; J2543; J2704; J2710; J7030; J7120; Q9967; J1170